=== PATIENT | female | born 1995 | race African-American/Black ===

== ENCOUNTER 2023-07-07 10:16 | Emergency (ER) | payer OTHER ==
[~2023-07-07] VITALS: Ht 170.2 cm; Wt 84.1 kg
[2023-07-07 10:20] VITALS: TEMP 98.9
[2023-07-07 10:40] VITALS: BP 122/71; PULSE 82; RESP 18
[2023-07-07] MEDS ORDERED: ACET-3385 PO (12:24)
== END 2023-07-07 12:17 | disposition home or self-care (01) ==
LOC: EMS 10:18
DX: J06.9 Acute upper respiratory infection, unspecified (principal)
CPT/HCPCS: 99282; Z7502